=== PATIENT | female | born 1965 | race Caucasian/White ===

== ENCOUNTER → 2016-03-03 | Outpatient (CLI) | payer BC ==
[~2016-03-03] MED LIST: ASPCH81X PO; CITA10TA4 PO; DOXY25TA19 PO; METO25TA3 PO; SUMA50TA15 PO
--- NOTE | 2016-03-03 16:47 | MAMMOGRAPHY REPORT ---
BILATERAL DIGITAL SCREENING MAMMOGRAM TOMOSYNTHESIS WITH CAD: 03/03/2016 CLINICAL HISTORY: Routine screening examination. TECHNIQUE: Bilateral CC and MLO 2-D digital and tomosynthesis images, repeat 2-D MLO views and a lef t cleavage view were obtained. Current study was also evaluated with a Computer Aided Detection (CA D) system. COMPARISON: Comparison is made to exams dated: 02/08/2015 mammogram, 02/07/2014 mammogram, 01/05/20 12 mammogram, and 12/30/2010 mammogram - [facility]. BREAST COMPOSITION: There are scattered areas of fibroglandular density in both breasts. FINDINGS: There is a possible faint clustered microcalcifications in the central right breast, for which additional spot magnification views are recommended. No other suspicious mass, architectural distortion or cluster of microcalcifications is seen bilater ally. IMPRESSION: ACR BI-RADS CATEGORY 0: INCOMPLETE EVALUATION: NEED ADDITIONAL IMAGING EVALUATION The possible faint clustered microcalcifications in the right breast need additional evaluation. The patient will be called to schedule an appointment. Approximately 10% of breast cancers are not detected with mammography. A negative mammographic repor t should not delay biopsy if a clinically suggestive mass is present. Ginette Epstein M.D. ay/:03/03/2016 15:57:39 Cigarette Seller: Tanvi TALAVERA)(Balta), [facility] letter sent: Addl Imaging 0 BI-RADS Code: ACR BI-RADS Category 0: Incomplete Evaluation: Need Additional Imaging Evaluation
== END | disposition home or self-care (01) ==
LOC: C.MAMM 12:27
PROVIDERS: ATTEND Obstetrics & Gynecology
DX: Z12.31 Encounter for screening mammogram for malignant neoplasm of breast (principal); R92.2 Inconclusive mammogram

== ENCOUNTER → 2016-03-11 | Outpatient (CLI) | payer BC ==
--- NOTE | 2016-03-11 13:30 | MAMMOGRAPHY REPORT ---
UNILATERAL RIGHT DIGITAL DIAGNOSTIC MAMMOGRAM: 03/11/2016 CLINICAL HISTORY: 50 year-old woman called back from screening mammography for a possible cluster of microcalcifications in the right lateral breast. Family history of breast cancer = mother. TECHNIQUE: Spot magnification right CC and ML views were obtained. COMPARISON: Comparison is made to exams dated: 03/03/2016 mammogram, 02/07/2014 mammogram, 5 mammogram, 01/11/2013 mammogram, 01/05/2012 mammogram, and 12/30/2010 mammogram - [facility]. BREAST COMPOSITION: The tissue of the right breast is heterogeneously dense, which may obscure smal l masses. FINDINGS: There is a small, 2 mm cluster of punctate and amorphous microcalcifications in the lower outer posterior right breast. No obvious associated asymmetry, mass or architectural distortion. Two other round loosely grouped microcalcifications are seen lateral and inferior to the 2 mm cluste r. Given that these microcalcifications were not definitely seen on prior mammograms they are indet erminate. Options of short interval follow-up mammograms with repeat attention versus definitive ch aracterization with tissue sampling were provided. We will opt to attempt biopsy at this time even though they are very faint. Pending benign pathology results, could consider follow-up of the 2 rou nd microcalcifications in a loose grouping located lateral and inferior to the clustered calcificati ons. No other suspicious mass, architectural distortion or cluster of microcalcifications is seen. IMPRESSION: ACR BI-RADS CATEGORY 4B: INTERMEDIATE SUSPICION FOR MALIGNANCY 1. Right breast stereotactic guided biopsy is recommended for a 2 mm cluster of faint punctate and amorphous microcalcifications in the lower outer posterior breast. 2. Pending benign pathology results, could consider a short interval follow-up of the other 2 loose ly grouped microcalcifications located inferior and lateral to the first. These results and recommendations were discussed with the patient at the time of the exam. She tenta tively scheduled the right breast biopsy prior to leaving our department. Approximately 10% of breast cancers are not detected with mammography. A negative mammographic repor t should not delay biopsy if a clinically suggestive mass is present. Ginette Epstein M.D. ay/:03/11/2016 11:08:17 Shuttle Driver: Jitendra ARAYA(Holli)(M), [facility] letter sent: Abnormal 4/5 BI-RADS Code: ACR BI-RADS Category 4B: Intermediate Suspicion For Malignancy
== END | disposition home or self-care (01) ==
LOC: C.MAMM 09:31
PROVIDERS: ATTEND Obstetrics & Gynecology
DX: R92.0 Mammographic microcalcification found on diagnostic imaging of breast (principal)

== ENCOUNTER → 2016-03-17 | Outpatient (CLI) | payer BC ==
--- NOTE | 2016-03-17 13:32 | Discharge Instructions ---
Discharge Instructions Procedure Procedure Date: Mar 17, 2016. Reason for visit: Right Calcs. Discharge Discharge Date: Mar 17, 2016. Discharge Diagnosis: post right breast stereotactic guided biopsy Instructions Activity Recommendations: Additional Limitations (see below) Return to School/Work: no limitations Recommended Home Diet: No Limitations Provider Instructions: ACTIVITY RECOMMENDATIONS: * No lifting, pushing, pulling or exercising the affected side for three days. RETURN TO SCHOOL/WORK: * You may return to work/school after the procedure, but do not perform any strenuous activities for 24 to 48 hours. MEDICATIONS: * Tylenol (two 325 mg) every four to six hours if needed for mild pain (if not allergic to Tylenol). DIET: * Resume previous diet. SPECIAL CARE INSTRUCTIONS: * Keep biopsy site dry for 24 hours. May shower after 24 hours, but do not soak (bathe) incision. * May remove Tegaderm (plastic patch) tomorrow AFTER showering. * Leave the steri-strips on for one week. Allow the steri-strips to fall off by themselves. If not off after one week, you may remove them. You may place a Bandaid crosswise over the strips, if desired. * Apply ice 10 minutes on and 10 minutes off as needed. * Wear a bra at bedtime to sleep more comfortably for 2-3 days. * Your referring physician should have the results after approximately 5 to 7 business days. * Call for unusual bleeding, fever, drainage, etc or if you have any questions call [phone] during normal business hours or after hours call Dr Epstein, . FOLLOW UP VISIT: Follow-up with Referring Physician as scheduled. Allergies Coded Allergies: NO KNOWN DRUG ALLERGIES (Verified Allergy, Unknown, ., 01/25/16) Luis Montejo Recommendations: Call your doctor if: * Temperature above 101 degrees * Pain not relieved by pain medicine ordered * There is increased drainage or redness from any incision * You have any unanswered questions or concerns. Your Doctors Instructions noted above were prepared by provider Ginette Epstein. Patient Signature Section: Patient Instructions Signature Page Corry Armendariz Patient (or Guardian) Signature/Date: I have read and understand the instructions given to me by my caregivers. Caregiver/RN/Doctor Signature/Date: The above-named patient and/or guardian has received patient instructions on this date. + Original Patient Signature Page (only) stays with chart. Please make copy for patient.
--- NOTE | 2016-03-17 15:36 | MAMMOGRAPHY REPORT ---
THIS REPORT HAS BEEN AMENDED. STEREOTACTIC GUIDED BIOPSY RIGHT BREAST: 03/17/2016 CLINICAL HISTORY: Indeterminate clustered microcalcifications in the lower outer, middle to posterio r right breast. Patient presents for stereotactic guided biopsy. COMPARISON: Comparison is made to exams dated: 03/03/2016 mammogram, 02/07/2014 mammogram, 01/11/2013 mammogram, 02/08/2015 mammogram, 01/05/2012 mammogram, and 12/27/2009 mammogram - [facility]. PATIENT CONSENT: After explaining the risks, benefits and alternatives of the procedure to the patie nt, informed consent was obtained both verbally and in writing. Specific risks include: Bleeding, i nfection, puncture of adjacent structure, nontarget biopsy, sampling error, middle allergy and medic ation reaction. PROCEDURE DESCRIPTION: A time-out was performed and the right breast was confirmed as the site of bi opsy. The patient was placed prone on the stereotactic biopsy table and the breast was placed in CC from above compression. A string top sealer image was obtained that demonstrated the clustered microcalcificatio ns in question. However, the coordinates were localizing the targeted to the inferior aspect of the breast therefore positioning was changed to CC from below and a repeat string top sealer image was obtained. T he microcalcifications were very faint on the initial string top sealer images. Two small faint groupings were thought to be identified on the AP view. Discussing these findings with the patient, the decision w as made to biopsy the grouping with the most conspicuous microcalcifications, as it was unclear if t his second area truly represented microcalcifications or was artifactual. Then +15 and -15 stereo pair images were obtained. The calcifications were targeted utilizing the coordinates obtained by [facility] [employer]. The skin was prepped with Betadine. 1% Lidocaine with and without epinipherine was admi nistered as local anesthesia. A small skin incision was made. Through the incision, the needle was inserted to the depth determined by the computer. 10 samples were obtained using a [employer] vacuum-assisted biopsy device. The specimen radiograph demonstrated several direct customer service representative microc alcifications, therefore, a metallic marker was placed at the biopsy site. There was no immediate co mplication. Hemostasis was achieved after several minutes of manual compression. The samples were s ent to pathology in an appropriately labeled container. Postprocedure CC and ML views of the right breast demonstrate a new dumbbell shaped metallic biopsy marker and no significant hematoma in the lower outer middle to posterior breast, at the site of the biopsied clustered microcalcifications. Based on the postprocedure CC view, there is a very faint 1.3 mm cluster of microcalcifications located 2 cm medial to the biopsy marker and the geometric lynne ter of the air pocket denoting the site of biopsy. Pending benign pathology results, this small clu ster can be followed in 6 months time to ensure stability. IMPRESSION: STEREOTACTIC GUIDED BIOPSY 1. Status post right breast stereotactic guided biopsy of a faint small cluster of microcalcificati ons in the lower outer middle to posterior right breast, with biopsy marker placed at the site. 2. Pending benign pathology results, a short interval follow-up exam including spot magnification v iews of the non-biopsied remaining small faint cluster of microcalcifications in the lower outer rig ht breast is recommended in 6 months. The patient will receive notification of the biopsy results from her referring physician. Ginette Epstein M.D. ay/:03/17/2016 13:52:29 Manager Social Work: Christianne Hutton, [facility] AMENDMENT: 04/03/2016 Ginette Epstein M.D. Pathology results from the stereotactic guided biopsy of a cluster of microcalcifications in the low er outer middle to posterior right breast yielded fibrocystic change, adenosis, columnar cell change , multifocal microcalcification associated with benign ductal elements. Negative for DCIS and invas danica carcinoma. The pathology results are concordant with the imaging appearance. Given that there was a second cluster of microcalcifications that was similar in morphology within the right breast, a short interval follow-up diagnostic right mammogram including spot magnification views is recommen ded to ensure stability of that cluster in 6 months time. letter sent: Follow Up Recommended 3
--- NOTE | 2016-03-17 15:37 | MAMMOGRAPHY REPORT ---
UNILATERAL RIGHT DIGITAL DIAGNOSTIC MAMMOGRAM: 03/17/2016 CLINICAL HISTORY: Status post right breast stereotactic guided biopsy of clustered microcalcificatio ns in the lateral posterior breast. Please refer to the report from right breast stereotactic guided biopsy performed at the same time f or full detail. IMPRESSION: POST PROCEDURE IMAGING FOR MARKER PLACEMENT Please refer to the report from right breast stereotactic guided biopsy performed at the same time f or full detail. Approximately 10% of breast cancers are not detected with mammography. A negative mammographic repor t should not delay biopsy if a clinically suggestive mass is present. Ginette Epstein M.D. ay/:03/17/2016 13:38:20 Grocery Store Bagger: Christianne Hutton, [facility] BI-RADS Code: Post Procedure Imaging For Marker Placement
== END | disposition home or self-care (01) ==
LOC: C.MAMM 12:20
PROVIDERS: ATTEND Obstetrics & Gynecology
DX: N60.11 Diffuse cystic mastopathy of right breast (principal); N60.21 Fibroadenosis of right breast; R92.0 Mammographic microcalcification found on diagnostic imaging of breast

== ENCOUNTER → 2016-08-27 | Outpatient (CLI) | payer BC | END | disposition home or self-care (01) | LOC: C.PAPS 11:52 | PROVIDERS: ATTEND Obstetrics & Gynecology | DX: Z01.419 Encounter for gynecological examination (general) (routine) without abnormal findings (principal) ==

== ENCOUNTER → 2016-09-16 | Outpatient (CLI) | payer BC ==
--- NOTE | 2016-09-16 13:56 | MAMMOGRAPHY REPORT ---
UNILATERAL RIGHT DIGITAL DIAGNOSTIC MAMMOGRAM TOMOSYNTHESIS WITH CAD: 09/16/2016 CLINICAL HISTORY: 51-year-old woman presents after a benign stereotactic right breast biopsy performe d 03/17/2016. She presents to follow-up a second non-biopsied clustered microcalcifications in the l ateral right breast. TECHNIQUE: Right CC and MLO 2-D and tomosynthesis images, spot magnification right CC and ML views we re obtained. Current study was also evaluated with a Computer Aided Detection (CAD) system. COMPARISON: Comparison is made to exams dated: 03/17/2016 mammogram, 03/17/2016 stereotactic biopsy, 02/11 mammogram, 03/03/2016 mammogram, 02/08/2015 mammogram, and 02/07/2014 mammogram - [facility]. BREAST COMPOSITION: There are scattered areas of fibroglandular density in the right breast. FINDINGS: There is a stable dumbbell-shaped metallic biopsy marker in the 6:00 posterior right breast , denoting the site of benign stereotactic biopsy. There are a few other very faint loose groupings of punctate microcalcifications identified in the right breast, lateral to the biopsy marker clip, sp ot magnification CC view. The nearest cluster of microcalcifications appears similar to the spot mag nification view dated 03/11/2016, and a possible second cluster is newly visualized, but similarly be nign-appearing. Another faint grouping of punctate monomorphic microcalcifications are seen lateral to the nipple in the anterior breast on the full-field CC view. No new suspicious mass, focal area o f architectural distortion or developing asymmetry is identified in the right breast. IMPRESSION: ACR-BI-RADS CATEGORY 3: PROBABLY BENIGN Stable mammographic appearance of the right breast, including post biopsy changes in the 6:00 posteri or breast. There are 1-2 additional faint clusters of punctate monomorphic microcalcifications sligh tly lateral to the biopsy marker clip on the CC view that most likely represent benign fibrocystic ch anges. Another six-month follow-up diagnostic mammogram including spot magnification views is recomm ended to ensure longer stability. Annual bilateral screening mammography will also be due at that ti tx. These results and recommendations were discussed with the patient at the time of the exam. Approximately 10% of breast cancers are not detected with mammography. A negative mammographic report should not delay biopsy if a clinically suggestive mass is present. Ginette Epstein M.D. ay/:09/16/2016 09:03:02 Mobility Developer: Christianne ARAYA(Holli)(Balta), [facility] letter sent: Follow Up Recommended 3 BI-RADS Code: ACR-BI-RADS Category 3: Probably Benign
== END | disposition home or self-care (01) ==
LOC: C.MAMM 07:51
PROVIDERS: ATTEND Obstetrics & Gynecology
DX: R92.8 Other abnormal and inconclusive findings on diagnostic imaging of breast (principal)

== ENCOUNTER 2017-03-06 19:54 | Emergency (ER) | payer BC, OTHER ==
[~2017-03-06] VITALS: Ht 162.6 cm; Wt 101.1 kg
[2017-03-06 20:02] VITALS: O2SAT 98
[2017-03-06 20:04] VITALS: Ht 162.6 cm; Wt 101.1 kg
[2017-03-06] MEDS ORDERED: ASPI81TA28 PO (20:46)
[2017-03-06] MEDS ORDERED: HYDROmorphone INJ 1 MG/ML SYR IV STA (20:56)
[2017-03-06] MEDS ORDERED: ONDANSETRON INJ 2 MG/ML 2 ML VIAL IV STA (20:56)
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
[2017-03-06] MEDS ORDERED: OPTIRAY 320 IV PRN (21:15)
[2017-03-06 21:33] LABS: ISTAT CREATININE 0.8 mg/dl (0.6-1.3); ISTAT IONIZED CALCIUM 1.2 mmol/l (1.12-1.32); ISTAT POTASSIUM 3.6 mEq/L (3.3-5.0)
[2017-03-06 21:49] LABS: BASO % 0.3 %; BASO ABS # 0.04 K/uL (0-0.2); EOS % 0.2 %; EOS ABS # 0.03 K/uL (0-0.5); HEMOGLOBIN 13.7 g/dL (12.0-16.0); IG# 0.03 K/uL (0.00-0.02); LYMPH % 5.6 %; LYMPH ABS # 0.74 K/uL (1.2-3.4); MEAN CELL VOLUME 90.5 fL (80-100); MEAN CORPUSCULAR HEMOGLOBIN 30.2 pg (25-34); MEAN CORPUSCULAR HGB CONC 33.4 g/dl (32-36); MEAN PLATELET VOLUME 9.7 fL (7.4-10.4); MONO % 8.7 %; MONO ABS # 1.15 K/uL (0.11-0.59); NEUT ABS # 11.18 K/uL (1.4-6.5); PLATELET COUNT 344 K/uL (130-400); RED CELL DISTRIBUTION WIDTH CV 13.1 % (11.5-14.5); RED CELL DISTRIBUTION WIDTH SD 43.5 fL (36.4-46.3); WHITE BLOOD COUNT 13.17 K/uL (4.8-10.8)
[2017-03-06 22:16] LABS: ALBUMIN 4.1 gm/dl (3.4-5.0); AST/SGOT 23 U/L (15-37); BLOOD UREA NITROGEN 17 mg/dl (7-18); CALCIUM 9.6 mg/dl (8.5-10.1); CARBON DIOXIDE 28 mmol/L (21-32); CREATININE 0.85 mg/dl (0.60-1.20); GLUCOSE 107 mg/dl (70-99); POTASSIUM 3.5 mmol/L (3.5-5.1); SODIUM 135 mmol/L (136-145)
[2017-03-06 22:24] LABS: ALKALINE PHOSPHATASE 94 U/L (45-117); ALT/SGPT 28 U/L (12-78); CKMB 2.5 ng/ml (0.5-3.6); TOTAL PROTEIN 8.1 gm/dl (6.4-8.2)
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
[2017-03-06] MEDS ORDERED: KETOROLAC TROMETHAMINE 30 MG/ML VIAL IV STA (23:05)
[2017-03-06] MEDS ORDERED: PERCOCET HOME PACK PO ONE (23:15)
[2017-03-06 23:30] VITALS: BP 101/59; PULSE 100; TEMP 37.4; O2SAT 96
== END 2017-03-07 00:28 | disposition home or self-care (01) ==
LOC: EDBD 19:54 → C.EDA 19:56
DX: R07.9 Chest pain, unspecified (principal); V43.52XA Car driver injured in collision with other type car in traffic accident, initial encounter; Y93.89 Activity, other specified; Y92.414 Local residential or business street as the place of occurrence of the external cause; Z79.82 Long term (current) use of aspirin

== ENCOUNTER → 2017-03-19 | Outpatient (CLI) | payer OTHER ==
[~2017-03-19] MED LIST changes: -ASPCH81X PO; +ASPI81TA28 PO; -DOXY25TA19 PO; -METO25TA3 PO; +METO25TA4 PO
--- NOTE | 2017-03-19 09:43 | DIAGNOSTIC IMAGING REPORT ---
ABDOMEN LIMITED (US) HISTORY: Abnormal CT exam ABNORMALITY OF PANCREATIC DUCT. COMPARISON: CT chest 03/06/2017 FINDINGS: Pancreas: The pancreas demonstrates a normal echotexture. No distention of the pancreatic duct. Liver: Unremarkable. Gallbladder: No gallbladder wall thickening. No gallstones. CBD: 6.5 mm Right kidney: No hydronephrosis. IMPRESSION: No significant abnormality identified within the within the right upper quadrant. The pancreatic duct specifically shows no evidence for distention. The above report was generated using voice recognition software. It may contain grammatical, syntax or spelling errors. Electronically signed by: Camden Jerez M.D. 03/19/2017 9:41 AM Dictated Date/Time: 03/19/2017 9:39 AM
== END | disposition home or self-care (01) ==
LOC: C.ULTR 08:25
PROVIDERS: ATTEND Nurse Practitioner Family
DX: Q45.3 Other congenital malformations of pancreas and pancreatic duct (principal)

== ENCOUNTER → 2017-05-11 | Outpatient (CLI) | payer OTHER ==
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
== END | disposition home or self-care (01) ==
LOC: C.MAMM 08:41
PROVIDERS: ATTEND Obstetrics & Gynecology
DX: R92.0 Mammographic microcalcification found on diagnostic imaging of breast (principal)

== ENCOUNTER → 2017-05-18 | Outpatient (CLI) | payer OTHER ==
--- NOTE | 2017-05-18 13:08 | Discharge Instructions ---
Discharge Instructions Procedure Procedure Date: May 18, 2017. Reason for visit: Left Calc. Discharge Discharge Date: May 18, 2017. Discharge Diagnosis: post left breast stereotactic guided biopsy Medications Restart Stopped Medication(s): May restart Aspirin this evening Instructions Activity Recommendations: Additional Limitations (see below) Return to School/Work: no limitations Recommended Home Diet: No Limitations Provider Instructions: ACTIVITY RECOMMENDATIONS: * No lifting, pushing, pulling or exercising the affected side for three days. RETURN TO SCHOOL/WORK: * You may return to work/school after the procedure, but do not perform any strenuous activities for 24 to 48 hours. MEDICATIONS: * Tylenol (two 325 mg) every four to six hours if needed for mild pain (if not allergic to Tylenol). DIET: * Resume previous diet. SPECIAL CARE INSTRUCTIONS: * Keep biopsy site dry for 24 hours. May shower after 24 hours, but do not soak (bathe) incision. * May remove Tegaderm (plastic patch) tomorrow AFTER showering. * Leave the steri-strips on for one week. Allow the steri-strips to fall off by themselves. If not off after one week, you may remove them. You may place a Bandaid crosswise over the strips, if desired. * Apply ice 10 minutes on and 10 minutes off as needed. * Wear a bra at bedtime to sleep more comfortably for 2-3 days. * Your referring physician should have the results after approximately 5 to 7 business days. * Call for unusual bleeding, fever, drainage, etc or if you have any questions call [phone] during normal business hours or after hours call Dr Epstien, . FOLLOW UP VISIT: Follow-up with Referring Physician as scheduled. Allergies Coded Allergies: NO KNOWN DRUG ALLERGIES (Verified Allergy, Unknown, ., 01/25/16) Luis Montejo Recommendations: Call your doctor if: * Temperature above 101 degrees * Pain not relieved by pain medicine ordered * There is increased drainage or redness from any incision * You have any unanswered questions or concerns. Your Doctors Instructions noted above were prepared by provider Ginette Epstein. Patient Signature Section: Patient Instructions Signature Page Corry Armendariz Patient (or Guardian) Signature/Date: I have read and understand the instructions given to me by my caregivers. Caregiver/RN/Doctor Signature/Date: The above-named patient and/or guardian has received patient instructions on this date. + Original Patient Signature Page (only) stays with chart. Please make copy for patient.
--- NOTE | 2017-05-19 07:39 | MAMMOGRAPHY REPORT ---
STEREOTACTIC GUIDED BIOPSY LEFT BREAST: 05/18/2017 CLINICAL HISTORY: Indeterminate clusters of amorphous microcalcifications in the lateral left breast. Patient presents for stereotactic guided biopsy of one residential sales representative cluster. COMPARISON: Comparison is made to exams dated: 05/11/2017 mammogram, 03/03/2016 mammogram, 02/08/2015 m ammogram, 02/07/2014 mammogram, 01/11/2013 mammogram, and 01/05/2012 mammogram - [facility]. PATIENT CONSENT: After explaining the risks, benefits and alternatives of the procedure to the patien t, informed consent was obtained both verbally and in writing. Specific risks include: Bleeding, inf ection, puncture of adjacent structure, pain, nontarget biopsy, sampling error, metal allergy and med ication reaction. PROCEDURE DESCRIPTION: A time-out was performed and the left breast was confirmed as the site of biop sy. The patient was placed prone on the stereotactic biopsy table and the breast was placed in CC fro m above compression. A packer operator automatic image was obtained that demonstrated the clustered microcalcifications i n question. They are amenable to sterotactic biopsy. Then +15 and -15 stereo pair images were obta ined. The calcifications were targeted utilizing the coordinates obtained by the computer. The skin was prepped with Betadine. 1% Lidocaine with and without epinipherine was administered as local anest hesia. A small skin incision was made. Through the incision, the needle was inserted to the depth de termined by the computer. 12 samples were obtained using a [employer] Eviva 9-gauge vacuum-assisted biopsy device. The specimen radiograph demonstrated several residential sales representative microcalcifications, therefore, a metallic marker was placed at the biopsy site. There was no immediate complication. Hemostasis was achieved after several minutes of manual compression. The samples were sent to pathology in two appr opriately labeled containers, "with calcifications" and "without calcifications". All of the samples were obtained from the same single biopsy site. Postprocedure CC and ML views of the left breast were obtained. There is a new dumbbell-shaped biops y marker clip and no significant hematoma in the upper outer middle to anterior left breast at the si te of the biopsied calcifications in question. Pending benign pathology results, six-month follow-up bilateral mammograms including spot magnification views are recommended to ensure stability of the n on-biopsied clustered calcifications in each breast. IMPRESSION: STEREOTACTIC GUIDED BIOPSY Status post left breast stereotactic guided biopsy of clustered amorphous microcalcifications in the lateral breast, with biopsy marker clip placed at the site. Pending benign pathology results, follow-up diagnostic mammograms including repeat spot magnification views are recommended to ensure stability of the non-biopsied microcalcifications in each breast. The patient will receive notification of the biopsy results from her referring physician. Ginette Epstein M.D. ay/:05/18/2017 13:28:29 Attending Technologist: Susan TALAVERA)(Balta), [facility] Molded Rub[employer] Goods Cutter: Christianne Hutton, [facility]
--- NOTE | 2017-05-19 07:42 | MAMMOGRAPHY REPORT ---
UNILATERAL LEFT DIGITAL DIAGNOSTIC MAMMOGRAM: 05/18/2017 CLINICAL HISTORY: Status post left breast stereotactic biopsy of a cluster of amorphous microcalcific ations in the lateral breast. Please refer to the report from left breast stereotactic guided biopsy performed at the same time for full detail. IMPRESSION: POST PROCEDURE IMAGING FOR MARKER PLACEMENT Please refer to the report from left breast stereotactic guided biopsy performed at the same time for full detail. A follow-up mammogram and an ultrasound in 6 months is recommended to demonstrate stability. Approximately 10% of breast cancers are not detected with mammography. A negative mammographic report should not delay biopsy if a clinically suggestive mass is present. Ginette Epstein M.D. ay/:05/18/2017 13:13:10 Attending Technologist: Susan TALAVEAR)(Balta), [facility] Personal Chef: Christianne Hutton, [facility] BI-RADS Code: Post Procedure Imaging For Marker Placement
== END | disposition home or self-care (01) ==
LOC: C.MAMM 12:22
PROVIDERS: ATTEND Obstetrics & Gynecology
DX: N60.22 Fibroadenosis of left breast (principal); R92.0 Mammographic microcalcification found on diagnostic imaging of breast

== ENCOUNTER → 2017-09-02 | Outpatient (CLI) | payer OTHER | END | disposition home or self-care (01) | LOC: C.PAPS 15:46 | PROVIDERS: ATTEND Obstetrics & Gynecology | DX: Z12.4 Encounter for screening for malignant neoplasm of cervix (principal) ==